=== PATIENT | female | born 1995 | race Caucasian/White ===

== ENCOUNTER 2016-09-01 16:05 | Inpatient (IN) ==
[2016-09-09] MEDS ORDERED: PEPCID PO PRN (19:35)
[2016-09-09] MEDS ORDERED: BRETHINE SUBQ PRN (19:35)
[2016-09-09] MEDS ORDERED: STADOL IV PRN ×3 (19:35)
[2016-09-09] MEDS ORDERED: TYLENOL PO PRN (19:35)
[2016-09-09] MEDS ORDERED: PEPCID PO ONE (19:35)
[2016-09-09] MEDS ORDERED: AMBIEN PO PRN (19:35)
[2016-09-09] MEDS ORDERED: PEPCID IV PRN (19:35)
[2016-09-09] MEDS ORDERED: ZOFRAN IV PRN (19:35)
[2016-09-09] MEDS ORDERED: REGLAN PO ONE (19:35)
[2016-09-09] MEDS: LR 1,000 ML IV SCH (21:44)
[2016-09-09 21:56] LABS: MANUAL DIFF NEEDED? NO
[2016-09-09 21:59] LABS: EOS# 0.05 X1000 (0.0-0.7); EOS% 0.5 % (0.0-10.0); HEMATOCRIT 32.9 % (37.0-47.0); HEMOGLOBIN 10.5 g/dL (12.0-16.0); IMM GRAN# 0.07 X1000 (0.0-0.04); IMM GRAN% 0.7 % (0.0-0.5); LYMPH# 2.11 X1000 (1.2-3.4); LYMPH% 20.6 % (20.5-51.1); MCH 25.9 PG (27-31); MCHC 31.9 g/dL (33-37); MONO% 6.8 % (1.7-9.3); MPV 11.8 FL (7.4-10.4); NEUT% 71.4 % (42.2-75.2); PLT 170 X1000 (130-400); RBC 4.06 XMIL (4.2-5.4)
[2016-09-09] MEDS ORDERED: CYTOTEC PO ONE (22:00)
[2016-09-10 01:21] LABS: URINE SOURCE VOIDED
[2016-09-10 01:26] LABS: BILIRUBIN URINE NEGATIVE (NEGATIVE); BLOOD URINE NEGATIVE (NEGATIVE); COLOR AMBER; GLUCOSE URINE NEGATIVE (NEGATIVE); LEUKOCYTES URINE 2+ (NEGATIVE); NITRITE URINE NEGATIVE (NEGATIVE); PH URINE 6.5; PROTEIN URINE 1+(30 mg/dL) mg/dL (NEGATIVE); UROBILINOGEN URINE NORMAL
[2016-09-10 01:29] LABS: CLARITY SLIGHTLY CLOUDY (CLEAR)
[2016-09-10] MEDS: CYTOTEC PO SCH ×2 (03:01→06:10)
[2016-09-10] MEDS: LR 1,000 ML IV SCH (03:02)
[2016-09-10] MEDS ORDERED: PITOCIN 30 UNITS/LR 500 ML IV SCH (06:00)
[2016-09-10] MEDS ORDERED: FENTANYL-BUPIV-NS 2 MCG-0.1% 200 ML ONE (08:32)
[2016-09-10] MEDS ORDERED: FENTANYL-BUPIV-NS 2 MCG-0.1% 200 ML EPIDURAL PRN (08:48)
[2016-09-10] MEDS ORDERED: SENSORCAINE-MPF 0.5%/EPI 1:200,000 ONE (13:09)
[2016-09-10] MEDS ORDERED: MINERAL OIL ONE (13:20)
[2016-09-10] MEDS ORDERED: XYLOCAINE-MPF 1% ONE (13:20)
[2016-09-10] MEDS ORDERED: PITOCIN 20 UNITS/LR 1,000 ML ONE (15:42)
[2016-09-10] MEDS ORDERED: PITOCIN IM PRN (17:05)
[2016-09-10] MEDS ORDERED: PITOCIN 30 UNITS/LR 500 ML IV ONE (17:05)
[2016-09-10] MEDS ORDERED: BENADRYL IV PRN (17:05)
[2016-09-10] MEDS ORDERED: XYLOCAINE-MPF 1% INJ PRN (17:05)
[2016-09-10] MEDS ORDERED: HYDROXYZINE PO PRN (17:05)
[2016-09-10] MEDS ORDERED: HYDROXYZINE IM PRN (17:05)
[2016-09-10] MEDS ORDERED: PERI MEDS (DERMOPLAST/NUPERCAINAL/TUCKS) MISC PRN (17:05)
[2016-09-10] MEDS ORDERED: AMBIEN PO PRN (17:05)
[2016-09-10] MEDS ORDERED: MINERAL OIL MISC PRN (17:05)
[2016-09-10] MEDS ORDERED: PITOCIN 20 UNITS/LR 1,000 ML IV SCH (17:05)
[2016-09-10] MEDS ORDERED: BOOSTRIX VACCINE IM ONE (17:05)
[2016-09-10] MEDS ORDERED: M-M-R II VACCINE SUBQ ONE (17:05)
[2016-09-10] MEDS ORDERED: CYTOTEC PO PRN (17:05)
[2016-09-10] MEDS ORDERED: NORCO-10 PO PRN (17:05)
[2016-09-10] MEDS ORDERED: BENADRYL PO PRN (17:05)
[2016-09-10] MEDS: PERICOLACE PO SCH ×2 (19:51→23:48)
--- NOTE | 2016-09-10 20:41 | OPERATIVE NOTE ---
PROCEDURE DATE: 09/10/2016 PREDELIVERY DIAGNOSES: 1. Term . 2. Rh negative blood type. POST DELIVERY DIAGNOSES: 1. Term . 2. Rh negative blood type. 3. Nuchal cord x1. PHYSICIAN: Dr. Valdez. ANESTHESIA: Epidural by Dr. Holden. PROCEDURE: Vaginal delivery. FINDINGS: Viable male infant 7 pounds 8 ounces. Do not have Apgars. Placenta was spontaneous and intact. Cord was 3 vessels. There was a primary left periurethral tear repaired with figure- of-eight stitch of 3-0 Polysorb. ESTIMATED BLOOD LOSS: 100 mL. COUNTS: All counts correct. DESCRIPTION OF DELIVERY: Ms. Hugo is a 20-year-old primigravida at term who was admitted last night for Cytotec induction. She has had good care since 10 weeks. Only found to have Rh negative blood type. That was the only abnormality. She was admitted last night. Received 2 doses Cytotec. This morning she was artificially ruptured. Clear fluid at 1 cm. She rapidly progressed to 4, received epidural anesthesia and then progressed to complete without distress or dystocia. Began pushing. Approximately 30 minutes after she crowned at which point the bed was broken down and she was prepped and draped. With continued pushing, she delivered a viable male infant occiput anterior over an intact perineum. Once head was delivered, the nuchal cord was reduced without difficulty and anterior shoulder delivered followed by the rest of the body. Once infant was completely delivered, it was placed on mother's abdomen. Cord was doubly clamped and cut. Care of infant was taken over by nursery personnel. The cord was inspected. It was 3 vessels. Cord blood was obtained and then attention was turned to inspection. There is a left periurethral tear that was noted. It was repaired with a [id number] stitch of 3-0 Polysorb. At this point approximately 5 minute had passed and gentle traction on the cord resulted in delivery of an intact placenta. It was inspected and discarded. There were no other lacerations or tears. There was no clots or foreign material in the vagina. Estimated blood loss 100 mL. All counts were correct needle, 10 Raytex, 1 vag pack.
[2016-09-11] MEDS: MOTRIN PO PRN ×3 (05:46→21:10)
[2016-09-11 06:44] LABS: MANUAL DIFF NEEDED? NO
[2016-09-11 07:07] LABS: BASO% 0.1 % (0.0-0.8); EOS# 0.02 X1000 (0.0-0.7); EOS% 0.2 % (0.0-10.0); HEMATOCRIT 26.8 % (37.0-47.0); HEMOGLOBIN 8.3 g/dL (12.0-16.0); IMM GRAN# 0.06 X1000 (0.0-0.04); IMM GRAN% 0.6 % (0.0-0.5); LYMPH# 2.44 X1000 (1.2-3.4); LYMPH% 24.1 % (20.5-51.1); MCH 25.5 PG (27-31); MCV 82.2 FL (81-99); MONO# 0.75 X1000 (0.11-0.59); MONO% 7.4 % (1.7-9.3); MPV 11.5 FL (7.4-10.4); NEUT% 67.6 % (42.2-75.2); PLT 141 X1000 (130-400); RBC 3.26 XMIL (4.2-5.4)
[2016-09-11] MEDS: PRECARE PO SCH (08:54)
[2016-09-11] MEDS: NORCO-5 PO PRN ×2 (13:28→21:10)
[2016-09-11] MEDS: PERICOLACE PO SCH (20:02)
[2016-09-12 07:44] VITALS: BP 128/77
[2016-09-12] MEDS: PRECARE PO SCH (08:45)
[2016-09-12] MEDS: MOTRIN PO PRN (08:50)
[2016-09-12] MEDS: NORCO-5 PO PRN (08:50)
--- NOTE | 2016-09-12 11:18 | CONSULTATION ---
DATE OF CONSULTATION: 09/12/2016 DATE OF : 1995. ADMISSION DIAGNOSIS: 09/09/2016. DATE OF DISCHARGE: 09/12/2016. PRINCIPLE DIAGNOSIS: Intrauterine . PRINCIPLE PROCEDURE: Normal spontaneous vaginal delivery. HOSPITAL COURSE: The patient was admitted on 09/09/2016 for a scheduled induction of labor. The patient was given 2 doses of Cytotec. Membranes were artificially ruptured and the patient had an uneventful labor course. The patient delivered via normal spontaneous vaginal delivery and was subsequently transferred to mother/baby once deemed stable. The patient's course has remained uneventful. Her lochia is less than and she is ambulating without assistance. Her pain is well controlled on day #2. CONDITION ON DISCHARGE: Stable. ELIMINATION CAPACITY: Independent. FEEDING CAPACITY: Independent. LOCOMOTION CAPACITY: Independent. REHABILITATION POTENTIAL: Good. PROGNOSIS: Good. DISCHARGE MEDICATIONS: Include Percocet 5/325, 1-2 tabs p.o. every 6 hours p.r.n. pain. DIET: The patient is to maintain a regular diet. PHYSICAL ACTIVITY: As tolerated. PLAN: 1. The patient is ordered to maintain pelvic rest x6 weeks. 2. Patient to call or return if fever greater than 100.4, heavy vaginal bleeding, foul smelling vaginal discharge, or any other acute changes. FOLLOWUP CARE: She is to be discharged home with orders to follow up Dr. Valdez in 6 weeks.
== END 2016-09-12 12:14 | disposition home or self-care (01) | DRG 775 ==
LOC: P.LD 09-09 19:29 → P.WC 09-10 17:57
PROVIDERS: ADMIT Obstetrics & Gynecology; ATTEND Obstetrics & Gynecology
PROC: 0UQMXZZ Repair Vulva, External Approach (ICD-10-PCS; 2016-09-10)
PROC: 10907ZC Drainage of Amniotic Fluid, Therapeutic from Products of Conception, Via Natural or Artificial Opening (ICD-10-PCS; 2016-09-10)
PROC: 3E033VJ Introduction of Other Hormone into Peripheral Vein, Percutaneous Approach (ICD-10-PCS; 2016-09-10)
PROC: 10E0XZZ Delivery of Products of Conception, External Approach (ICD-10-PCS; principal; 2016-09-10 07:45)
PROC: 3E0234Z Introduction of Serum, Toxoid and Vaccine into Muscle, Percutaneous Approach (ICD-10-PCS; 2016-09-11)
DX: O69.1XX0 Labor and delivery complicated by cord around neck, with compression, not applicable or unspecified (principal); O26.893 Other specified pregnancy related conditions, third trimester; O71.82 Other specified trauma to perineum and vulva; Z3A.39 39 weeks gestation of pregnancy; Z37.0 Single live birth; Z67.41 Type O blood, Rh negative
CPT/HCPCS: 59025; 81003; 85025; 85461; 86592; 86900; 86901; J2590; J2790; J7120; S0020

== ENCOUNTER 2019-07-17 03:55 | Inpatient (IN) ==
[2019-07-17 04:11] LABS: URINE SOURCE VOIDED
[2019-07-17 04:16] LABS: BILIRUBIN URINE NEGATIVE (NEGATIVE); BLOOD URINE NEGATIVE (NEGATIVE); COLOR YELLOW; GLUCOSE URINE NEGATIVE (NEGATIVE); KETONE URINE NEGATIVE (NEGATIVE); LEUKOCYTES URINE LARGE (NEGATIVE); NITRITE URINE NEGATIVE (NEGATIVE); PH URINE 6.5; PROTEIN URINE 70 mg/dL (NEGATIVE); SP GRAVITY URINE 1.012; TURBIDITY URINE HAZY (CLEAR); UROBILINOGEN URINE NORMAL (NORMAL)
[2019-07-17 04:29] LABS: UR AMPHETAMINES QUAL NONE DETECTED (NONE DETECT); UR BARBITUATES QUAL NONE DETECTED (NONE DETECT); UR BENZODIAZEPIN QUAL NONE DETECTED (NONE DETECT); UR CANNABINOIDS QUAL NONE DETECTED (NONE DETECT); UR COCAINE QUAL NONE DETECTED (NONE DETECT); UR METHADONE QUAL NONE DETECTED (NONE DETECT); UR OPIATES QUAL NONE DETECTED (NONE DETECT); UR OXYCODONE QUAL NONE DETECTED (NONE DETECT); UR PCP QUAL NONE DETECTED (NONE DETECT)
[2019-07-17 04:45] LABS: BASO# 0.02 X1000 (0.0-0.2); BASO% 0.3 % (0.0-0.8); EOS# 0.03 X1000 (0.0-0.7); EOS% 0.4 % (0.0-10.0); HEMATOCRIT 24.9 % (37.0-47.0); HEMOGLOBIN 7.1 g/dL (12.0-16.0); IMM GRAN# 0.07 X1000 (0.0-0.04); LYMPH# 1.97 X1000 (1.2-3.4); MCH 20.9 PG (27-31); MCHC 28.5 g/dL (33-37); MCV 73.2 FL (81-99); MONO# 0.33 X1000 (0.11-0.59); MONO% 4.5 % (1.7-9.3); MPV 11.3 FL (7.4-10.4); NEUT# 4.88 X1000 (1.4-6.5); NEUT% 66.8 % (42.2-75.2); PLT 190 X1000 (130-400); RDW 17.3 % (11.5-14.5)
[2019-07-17 05:24] LABS: RPR NON-REACTIVE (NONREACTIVE); RUBELLA SCREEN IMMUNE (IMMUNE)
[2019-07-17 05:25] LABS: RAPID HIV PRESUMPTIVE NEGATIVE
[2019-07-17 06:00] LABS: LYMPHS 29 % (21-51); MONO 5 % (1-9); SEGS 66 % (42-75)
[2019-07-17 06:35] LABS: AGAP 14; ALB/GLOB RATIO 1.3; ALBUMIN 3.2 g/dL (3.5-5.0); ALKALINE PHOSPHATASE 157 U/L (32-104); BUN 6 mg/dL (8-22); CALCIUM 8.1 mg/dL (8.8-10.2); CHLORIDE 107 mmol/L (98-107); COSMO 278; CREATININE 0.5 mg/dL (0.5-0.9); ESTIMATED GFR > 60; GLUCOSE 81 mg/dL (70-104); GOT 15 U/L (10-30); GPT 6 U/L (10-36); POTASSIUM 4.1 mmol/L (3.5-5.1); SODIUM 141 mmol/L (136-145); TCO2 20 mmol/L (25-35); TOTAL BILIRUBIN 0.21 mg/dL (0.20-1.00); TOTAL PROTEIN 5.6 g/dL (6.3-8.3)
--- NOTE | 2019-07-17 07:43 | Diag Imaging Result Doc PS360 ---
EXAM: US OBS COMPLETE > 14 WKS HISTORY: dates, no care TECHNIQUE: OB ultrasound COMPARISON: None. FINDINGS: There is an intrauterine with an estimated gestational age of 38 weeks four days +/- 16 days based on multiple measurements correspond with a date of delivery of 07/27/2019. No focal abnormality identified. Fetus is in cephalic presentation. heart rate is 147 bpm. Amniotic fluid index is 5.02 cm. The placenta is anterior. IMPRESSION: Late term intrauterine . Electronically signed by Kip Reaves 07/17/2019 7:41 AM
[2019-07-17] MEDS ORDERED: TYLENOL PO PRN (08:25)
[2019-07-17] MEDS ORDERED: REGLAN PO PRN (08:25)
[2019-07-17] MEDS ORDERED: STADOL IV PRN (08:25)
[2019-07-17] MEDS ORDERED: KEFZOL 2 GM/D5W 2 GM/50 ML IVPB IV PRN (08:25)
[2019-07-17] MEDS ORDERED: ZOFRAN IV PRN (08:25)
[2019-07-17] MEDS ORDERED: PEPCID IV PRN (08:25)
[2019-07-17] MEDS ORDERED: PEPCID PO PRN ×2 (08:25)
[2019-07-17] MEDS ORDERED: SODIUM CHLORIDE 0.9% INJ SCH (08:30)
[2019-07-17] MEDS ORDERED: PITOCIN 30 UNITS/NS 30 UNIT/500 ML IV.SOLN IV SCH (08:30)
[2019-07-17] MEDS ORDERED: CLINDAMYCIN 900 MG/NS 900 MG/50 ML IVPB IV SCH (09:00)
[2019-07-17] MEDS: LR 1,000 ML IV SCH ×2 (09:05→11:30)
[2019-07-17] MEDS: CLINDAMYCIN 900 MG/D5W 900 MG/50 ML IVPB IV SCH (09:15)
[2019-07-17] MEDS ORDERED: NEO-SYNEPHRINE IV PRN (10:00)
[2019-07-17] MEDS ORDERED: NAROPIN 0.2% INJ ONE (10:00)
[2019-07-17] MEDS ORDERED: FENTANYL-BUPIV-NS 500 MCG-0.125% 250 ML EPIDURAL SCH (10:00)
[2019-07-17] MEDS ORDERED: FENTANYL IV PRN (10:03)
[2019-07-17] MEDS ORDERED: NAROPIN 0.2% INJ PRN (10:06)
[2019-07-17 15:51] LABS: HIV ANTIBODY SCREEN SEE COMMENTS
[2019-07-17] MEDS ORDERED: MINERAL OIL TOP PRN (16:42)
[2019-07-17] MEDS ORDERED: NORCO-10 PO PRN (17:04)
[2019-07-17] MEDS ORDERED: AMBIEN PO PRN (17:04)
[2019-07-17] MEDS ORDERED: HYDROXYZINE IM PRN (17:04)
[2019-07-17] MEDS ORDERED: PITOCIN IM PRN (17:04)
[2019-07-17] MEDS ORDERED: MINERAL OIL PO PRN (17:04)
[2019-07-17] MEDS ORDERED: BOOSTRIX VACCINE IM ONE (17:04)
[2019-07-17] MEDS ORDERED: ATARAX PO PRN (17:04)
[2019-07-17] MEDS ORDERED: CYTOTEC PO PRN (17:04)
[2019-07-17] MEDS ORDERED: XYLOCAINE-MPF 1% INJ PRN (17:04)
[2019-07-17] MEDS ORDERED: BENADRYL PO PRN (17:04)
[2019-07-17] MEDS ORDERED: M-M-R II VACCINE SUBQ ONE (17:04)
[2019-07-17] MEDS ORDERED: BENADRYL IV PRN (17:04)
[2019-07-17] MEDS ORDERED: PERI MEDS (DERMOPLAST/NUPERCAINAL/TUCKS) MISC PRN (17:04)
[2019-07-17] MEDS ORDERED: PITOCIN 20 UNITS/NS 20 UNITS/1,000 ML IV.SOLN IV SCH (17:15)
[2019-07-17] MEDS: MOTRIN PO PRN (19:06)
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
[2019-07-17] MEDS: PERICOLACE PO SCH (22:40)
[2019-07-17] MEDS: NORCO-5 PO PRN (22:41)
[2019-07-17] MEDS: FERROUS SULFATE PO SCH (22:41)
--- NOTE | 2019-07-17 23:09 | OPERATIVE NOTE ---
PROCEDURE DATE: 07/17/2019 PROCEDURE: Vaginal delivery. DESCRIPTION OF PROCEDURE: The patient progressed to complete and pushing, and had spontaneous vaginal delivery of a male , 7 pounds 8 ounces with scores of 8 and 9 at 1646 hours on 07/17/2019, over intact perineum. Cord blood sample was obtained at this time. Placenta was delivered intact with 3-vessel cord. ANESTHESIA: Epidural. ESTIMATED BLOOD LOSS: 200 mL COUNTS: All counts were correct x2. cc: Zelalem Freed III, MD
[2019-07-18] MEDS: PITOCIN 30 UNITS/NS 30 UNIT/500 ML IV.SOLN IV SCH ×2 (01:07→01:08)
[2019-07-18 05:00] LABS: BASO# 0.02 X1000 (0.0-0.2); BASO% 0.2 % (0.0-0.8); EOS# 0.05 X1000 (0.0-0.7); EOS% 0.5 % (0.0-10.0); HEMATOCRIT 21.2 % (37.0-47.0); HEMOGLOBIN 6.1 g/dL (12.0-16.0); IMM GRAN# 0.12 X1000 (0.0-0.04); IMM GRAN% 1.2 % (0.0-0.5); LYMPH# 2.33 X1000 (1.2-3.4); LYMPH% 23.7 % (20.5-51.1); MCH 21.1 PG (27-31); MCHC 28.8 g/dL (33-37); MCV 73.4 FL (81-99); MONO# 0.52 X1000 (0.11-0.59); MONO% 5.3 % (1.7-9.3); MPV 10.7 FL (7.4-10.4); NEUT% 69.1 % (42.2-75.2); PLT 144 X1000 (130-400); RBC 2.89 XMIL (4.2-5.4); RDW 17.2 % (11.5-14.5); WBC 9.84 X1000 (4.8-10.8)
[2019-07-18 06:31] LABS: HEPATITIS B SURFACE ANTIGEN SEE COMMENTS
[2019-07-18] MEDS: MOTRIN PO PRN ×2 (07:24→18:51)
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
[2019-07-18] MEDS: FERROUS SULFATE PO SCH ×2 (08:51→20:03)
[2019-07-18] MEDS: CELEXA PO SCH (08:52)
[2019-07-18] MEDS ORDERED: SLOW-FE PO SCH (09:00)
[2019-07-18] MEDS: NORCO-5 PO PRN (12:19)
[2019-07-18] MEDS: CLINDAMYCIN 900 MG/D5W 900 MG/50 ML IVPB IV SCH (15:31)
[2019-07-18 16:02] LABS: BASO# 0.02 X1000 (0.0-0.2); BASO% 0.2 % (0.0-0.8); EOS# 0.06 X1000 (0.0-0.7); EOS% 0.7 % (0.0-10.0); HEMATOCRIT 21.7 % (37.0-47.0); HEMOGLOBIN 6.4 g/dL (12.0-16.0); IMM GRAN% 1.1 % (0.0-0.5); MCH 21.8 PG (27-31); MCHC 29.5 g/dL (33-37); MCV 74.1 FL (81-99); MONO# 0.42 X1000 (0.11-0.59); MONO% 4.7 % (1.7-9.3); MPV 11.1 FL (7.4-10.4); NEUT% 66.3 % (42.2-75.2); PLT 146 X1000 (130-400); RBC 2.93 XMIL (4.2-5.4); RDW 17.3 % (11.5-14.5)
[2019-07-18 16:24] LABS: BANDS 1 % (0-1); HYPOCHROM OCCASIONAL; LARGE PLATELETS OCCASIONAL; LYMPHS 14 % (21-51); MICROCYTOSIS 1+; MONO 1 % (1-9); NRBC 4 % (0-0); SEGS 83 % (42-75)
[2019-07-18] MEDS: PERICOLACE PO SCH (20:03)
[2019-07-19] MEDS: MOTRIN PO PRN ×2 (07:59→17:52)
[2019-07-19] MEDS: FERROUS SULFATE PO SCH ×2 (08:49→21:11)
[2019-07-19] MEDS: CELEXA PO SCH (08:49)
[2019-07-19] MEDS: NORCO-5 PO PRN ×2 (11:55→21:11)
--- NOTE | 2019-07-19 20:24 | OB/GYN PROGRESS NOTE ---
- Subjective 23 yo PPD#2 s/p with no PNC, anxiety/depression,PTSD Patient seen and examined. She is currently awaiting placement at an inpatient psych facility. Pain is controlled. She notes minimal lochia. She is ambulating and voiding without difficulty. She has made an adoption plan for her baby. She is undecided on PP contraception. OB Physical Exam Vital Signs - 8 hr 07/19/19 16:20 Temperature 97.2 F L Pulse Rate 78 Respiratory Rate 16 Blood Pressure 118/59 O2 Sat by Pulse Oximetry 99 - CONSTITUTIONAL General Appearance: appears well, alert, no apparent distress - HEAD, EARS, NOSE, MOUTH & THROAT HENMT: normocephalic/atraumatic - RESPIRATORY Respiratory: lungs clear, no respiratory distress - CARDIOVASCULAR Cardiovascular: regular rate, rhythm - GASTROINTESTINAL (ABDOMEN) Abdominal Exam: normal bowel sounds, non tender, soft, other (fundus firm, below umbilicus) - MUSCULOSKELETAL Extremity: normal range of motion, non-tender, no calf tenderness - NEUROLOGIC Neurologic: grossly normal - PSYCHIATRIC Psych/Mental Status: normal mood/affect Active Medications Generic Name Dose Route Start Last Admin Trade Name Freq PRN Reason Stop Dose Admin Acetaminophen 650 mg 07/17/19 08:25 Tylenol PO Q4-6H PRN PRN Headache Hydrocodone Bitart/Acetaminophen 1 each 07/17/19 17:04 07/19/19 11:55 [place]-5 PO 1 each Q3-4H PRN PRN Administration Pain (1-6 on Pain Scale) Hydrocodone Bitart/Acetaminophen 1 each 07/17/19 17:04 07/18/19 20:03 [place]-10 PO 1 each Q3-4H PRN PRN Administration Pain (7-10 on Pain Scale) Benzocaine 1 each 07/17/19 17:04 Saritha Meds (Dermoplast/Nupercainal/Tucks) MISC 3-4XDAY PRN PRN episiotomy/hemorrhoids Butorphanol Tartrate 2 mg 07/17/19 08:25 Stadol IV PRN PRN Pain Citalopram Hydrobromide 20 mg 07/18/19 09:00 07/19/19 08:49 Celexa PO 20 mg QAM MATTY Administration Diphenhydramine HCl 12.5 mg 07/17/19 17:04 Benadryl IV Q4H PRN PRN Itching Diphenhydramine HCl 25 mg 07/17/19 17:04 Benadryl PO Q4H PRN PRN Itching Famotidine 20 mg 07/17/19 08:25 Pepcid PO ONCE PRN PRN section Famotidine 40 mg 07/17/19 08:25 Pepcid PO Q12H PRN PRN GI upset or indigestion Famotidine 20 mg 07/17/19 08:25 07/17/19 14:39 Pepcid IV 20 mg Q12H PRN PRN Administration GI upset or indigestion Ferrous Sulfate 325 mg 07/17/19 21:00 07/19/19 08:49 Ferrous Sulfate PO 325 mg BID MATTY Administration Hydroxyzine HCl 50 mg 07/17/19 17:04 Atarax PO Q3-4H PRN PRN Nausea Hydroxyzine HCl 50 mg 07/17/19 17:04 Hydroxyzine IM Q3-4H PRN PRN Nausea Ibuprofen 800 mg 07/17/19 17:04 07/19/19 17:52 Motrin PO 800 mg Q8H PRN PRN Administration cramping Metoclopramide HCl 10 mg 07/17/19 08:25 Reglan PO ONCE PRN PRN section Mineral Oil 30 ml 07/17/19 16:42 Mineral Oil TOP PRN PRN delivery Mineral Oil 30 ml 07/17/19 17:04 Mineral Oil PO PRN PRN Perineal massage Misoprostol 800 microgm 07/17/19 17:04 Cytotec PO PRN PRN Severe bleeding Ondansetron HCl 4 mg 07/17/19 08:25 Zofran IV PRN PRN Nausea Oxytocin 20 unit 07/17/19 17:04 Pitocin IM PRN PRN Severe bleeding Ropivacaine 20 ml 07/17/19 10:06 07/17/19 11:30 Naropin 0.2% INJ 20 ml ONCE PRN PRN Administration Senna/Docusate Sodium 1 each 07/17/19 21:00 07/18/19 20:03 Pericolace PO 1 each QHS MATTY Administration Sodium Chloride 5 - 10 ml 07/17/19 08:30 07/17/19 14:39 Sodium Chloride 0.9% INJ 10 ml DIRECTED MATTY Administration Zolpidem Tartrate 10 mg 07/17/19 17:04 Ambien PO HS PRN PRN Sleep 07/17/19 04:40 Group B Streptococcus Culture - Final Vaginal No Group B Strep isolated Microbiology 07/17/19 04:40 Group B Streptococcus Culture - Final Vaginal No Group B Strep isolated OB Assessment & Plan (1) Vaginal delivery Status: Acute Plan: 23 yo PPD#2 s/p with anxiety/depression, PTSD, no care 1. HD stable, afebrile 2. Awaiting placement at inpatient psych facility per psych recommendations 3. Routine PP care 4. Undecided on pp contraception, discussed options, considering paragard IUD 5. Adoption plan made for
[2019-07-19] MEDS: PERICOLACE PO SCH (21:11)
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
[2019-07-20] MEDS: MOTRIN PO PRN (06:08)
[2019-07-20 08:15] VITALS: BP 131/74
[2019-07-20] MEDS: CELEXA PO SCH (08:31)
[2019-07-20] MEDS: FERROUS SULFATE PO SCH (08:31)
[2019-07-20 13:48] LABS: BASO# 0.03 X1000 (0.0-0.2); BASO% 0.3 % (0.0-0.8); EOS# 0.26 X1000 (0.0-0.7); EOS% 2.7 % (0.0-10.0); HEMOGLOBIN 6.4 g/dL (12.0-16.0); IMM GRAN# 0.19 X1000 (0.0-0.04); LYMPH# 2.22 X1000 (1.2-3.4); LYMPH% 23.4 % (20.5-51.1); MCH 21.1 PG (27-31); MCHC 27.8 g/dL (33-37); MCV 75.7 FL (81-99); MONO# 0.45 X1000 (0.11-0.59); MONO% 4.8 % (1.7-9.3); MPV 10.2 FL (7.4-10.4); NEUT# 6.32 X1000 (1.4-6.5); NEUT% 66.8 % (42.2-75.2); PLT 188 X1000 (130-400); RBC 3.04 XMIL (4.2-5.4); RDW 17.7 % (11.5-14.5); WBC 9.47 X1000 (4.8-10.8)
[2019-07-20 14:00] LABS: AGAP 10; ALB/GLOB RATIO 1.2; ALBUMIN 3.1 g/dL (3.5-5.0); ALKALINE PHOSPHATASE 114 U/L (32-104); BUN 9 mg/dL (8-22); CALCIUM 8.5 mg/dL (8.8-10.2); CHLORIDE 103 mmol/L (98-107); COSMO 275; CREATININE 0.5 mg/dL (0.5-0.9); ESTIMATED GFR > 60; GLUCOSE 85 mg/dL (70-104); GOT 16 U/L (10-30); GPT 8 U/L (10-36); POTASSIUM 4.4 mmol/L (3.5-5.1); SODIUM 139 mmol/L (136-145); TCO2 26 mmol/L (25-35); TOTAL BILIRUBIN < 0.15 mg/dL (0.20-1.00); TOTAL PROTEIN 5.7 g/dL (6.3-8.3)
== END 2019-07-20 18:29 | DRG 806 ==
LOC: OPLD 03:55 → LD 03:56
PROVIDERS: ADMIT Obstetrics & Gynecology; ATTEND Obstetrics & Gynecology